=== PATIENT | female | born 1980 | race Two or more races ===

== ENCOUNTER 2021-01-23 01:09 | Emergency (ER) | payer BC, OTHER ==
[2021-01-23] MEDS ORDERED: Albuterol 0.083% 2.5 MG/3 ML Neb Soln NEB ONE (01:39)
[2021-01-23] MEDS ORDERED: predniSONE 20 MG Tab PO ONE (01:47)
[2021-01-23] MEDS ORDERED: methylPREDNISolone Sodium Succinate 40 MG/1 ML SDV IM ONE (02:07)
--- NOTE | 2021-01-23 03:26 | EDM.PDOC ---
ED HPI GENERAL MEDICAL PROBLEM - General Chief Complaint: Asthma Stated Complaint: ASTHMA Time Seen by Provider: 01/23/21 01:34 - History of Present Illness INITIAL COMMENTS - FREE TEXT/NARRATIVE: Patient arrived to ED via private vehicle Onset of symptoms occurred when she got home from work, approximately 1730 She began feeling short of breath She used 3 sprays of her albuterol inhaler without improvement Subsequently took additional albuterol via nebulizer, without improvement She is on fifth day of prepackaged steroid taper This was prescribed in [place] for asthma exacerbation last weekend Her last asthma hospitalization was several years ago - Related Data Allergies Allergy/AdvReac Type Severity Reaction Status Date / Time No Known Allergies Allergy Verified 01/23/21 01:32 Home Meds: Home Meds Albuterol Sulfate [Albuterol Sulfate Hfa] 2 puff IH Q4H PRN 01/23/21 [History] Fluticasone/Vilanterol [Breo Ellipta 200-25 MCG Inhalation Kit] 1 puff IH DAILY 01/23/21 [History] predniSONE [Prednisone] 10 mg PO ASDIRECTED #45 tablet 01/23/21 [Rx] Past Medical History Respiratory History: Reports: Asthma Social & Family History - Tobacco Use Tobacco Use Status *Q: Never Tobacco User Second Hand Smoke Exposure: No - Recreational Drug Use Recreational Drug Use: No ED ROS GENERAL - Review of Systems Review Of Systems: See Below Free Text/Narrative/Comment: Constitutional - no fever Eyes - no eye pain; no visual disturbance ENT - no rhinorrhea; no congestion; no epistaxis Cardiovascular - no chest pain Respiratory - shortness of breath; cough Gastrointestinal - no abdominal pain; no nausea; no vomiting; no diarrhea Genitourinary - no dysuria Musculoskeletal - no neck pain; no back pain; no extremity injury Neurological - no headache; no speech disturbance; no weakness ED EXAM, GENERAL - Physical Exam Exam: See Below Free Text/Narrative:: Constitutional - awake; alert; mild to moderate respiratory distress Head - no facial swelling or weakness Eyes - extra ocular motion intact; conjunctiva normal ENT - no nasal deformity; no epistaxis; normal phonation Neck - no swelling Respiratory - moderate respiratory effort; tachypnea; mild to moderate, diffuse wheezing; moderately diminished breath sounds; no stridor; no crackles; speaks in short sentences Cardiovascular - regular rhythm; normal rate; S1; S2; grade 1/6 systolic murmur GI/Abdomen - normal bowel sounds; soft; no tenderness; no rebound; no guarding; no mass Musculoskeletal - grossly normal strength and motion; no swelling or deformity Skin - warm; dry Neurologic - normal speech; no weakness Psychiatric - normal mood and affect; memory and attention normal Course - Vital Signs Text/Narrative:: . Considered etiologies included: Dyspnea, wheezing, asthma exacerbation, pneumonia Symptoms and examination were discussed Empiric treatment was initiated with albuterol by continuous nebulizer A dose of prednisone was also ordered Patient requested parenteral steroid instead, and was given methylprednisolone IM Radiography was obtained for further investigation At reevaluation she reported noticeable improvement in dyspnea She was able to lie comfortably in lateral recumbent position There was further improvement with no recurrence of respiratory distress during subsequent ED observation Escalation of steroid therapy was advised and patient was agreeable Patient was felt to be stable for outpatient follow-up Return precautions were provided Last Recorded V/S: Last Vital Signs Temp 36.2 C 01/23/21 01:29 Pulse 96 01/23/21 06:34 Resp 24 H 01/23/21 06:34 BP 114/54 L 01/23/21 06:34 Pulse Ox 95 01/23/21 06:34 - Orders/Labs/Meds Meds: Medications Discontinued Medications Generic Name Dose Route Start Last Admin Trade Name Freq PRN Reason Stop Dose Admin Albuterol 15 mg 01/23/21 01:39 01/23/21 01:50 Albuterol 0.083% 2.5 Mg/3 Ml Neb Soln NEB 01/23/21 01:40 15 mg ONETIME ONE Administration Methylprednisolone Sodium Succinate 80 mg 01/23/21 02:07 01/23/21 02:20 Methylprednisolone Sodium Succinate 40 Mg/1 Ml Sdv IM 01/23/21 02:08 80 mg ONETIME ONE Administration Prednisone 60 mg 01/23/21 01:47 Prednisone 20 Mg Tab PO 01/23/21 01:48 ONETIME ONE - Radiology Interpretation Free Text/Narrative:: XR chest, AP portable, interpreted by greeting card writer: Bilateral perihilar inflammation Departure - Departure Time of Disposition: 06:24 Disposition: Home, Self-Care 01 Clinical Impression: Asthma with acute exacerbation in adult - Discharge Information *PRESCRIPTION DRUG MONITORING PROGRAM REVIEWED*: No *COPY OF PRESCRIPTION DRUG MONITORING REPORT IN PATIENT JOSÉ MIGUEL: No Prescriptions: predniSONE [Prednisone] 10 mg PO ASDIRECTED #45 tablet Instructions: Asthma, Adult Referrals: Daria Torres MD [Primary Care Provider] - Forms: ED Department Discharge Additional Instructions: Return if condition worsens May resume general activity and regular diet as tolerated Continue usual medications Start PREDNISONE today as prescribed, then taper as directed May use ALBUTEROL via inhaler or nebulizer every 4 hours as needed for shortness of breath Follow-up with primary care provider is recommended in 3 to 5 days Sepsis Event Note (ED) - Evaluation Sepsis Screening Result: No Definite Risk
--- NOTE | 2021-01-23 07:08 | CR ---
Chest: Portable view of the chest was obtained. Comparison: No prior chest imaging is available. Heart size and mediastinum are normal. Lungs are clear with no acute parenchymal change. Bony structures show nothing acute. Impression: 1. Nothing acute is seen on portable chest x-ray. Diagnostic code #1
== END 2021-01-23 06:34 | disposition home or self-care (01) ==
LOC: JD.ED 01:09 → EEVIPCON 01:09 → JD.ED 06:34
DX: J45.901 Unspecified asthma with (acute) exacerbation (principal); Z79.899 Other long term (current) drug therapy
CPT/HCPCS: 71045; 94640; 96372; 99285; J2920

== ENCOUNTER 2024-05-10 09:32 | Emergency (ER) | payer BC ==
[2024-05-10] MEDS: Albuterol/Ipratropium 3.0-0.5 MG/3 ML Neb Soln NEB ONE ×2 (10:01→11:12)
[2024-05-10] MEDS: Sodium Chloride 0.9% 10 ML Syringe FLUSH PRN (10:45)
[2024-05-10] MEDS: methylPREDNISolone Sodium Succinate 125 MG/2 ML SDV IVPUSH ONE (10:45)
== END 2024-05-10 11:50 | disposition home or self-care (01) ==
LOC: JD.ED 09:32
DX: J45.21 Mild intermittent asthma with (acute) exacerbation (principal); Z79.899 Other long term (current) drug therapy
CPT/HCPCS: 94640; 96374; 99284; J2919; J7620-GY

== ENCOUNTER 2024-09-05 07:55 | Day surgery (SDC) | payer BC ==
[2024-09-05] MEDS: Phenylephrine 2.5% Ophth Soln 2 ML Bot EYERT SCH (06:58)
[2024-09-05] MEDS: Lidocaine 1% PF 2 ML SDV INJECT SCH (06:58)
[2024-09-05] MEDS: Tetracaine HCl/PF 0.5% 4 ML Bottle EYEBOTH SCH (06:58)
[2024-09-05] MEDS: Cefuroxime 10 MG/ML SYRINGE EYERT SCH (06:59)
[2024-09-05] MEDS: Pilocarpine 4% Ophth Soln 15 ML Bot EYERT SCH (06:59)
[2024-09-05] MEDS: Polymyxin B/Trimethoprim 10 ML Bottle EYERT SCH (06:59)
[2024-09-05] MEDS: Brimonidine 0.2% Ophth Soln 5 ML Bottle EYERT SCH (06:59)
[2024-09-05] MEDS: Tropicamide 1% Ophth Soln 3 ML Bottle EYERT SCH (08:27)
[2024-09-05] MEDS: LORazepam 1 MG Tab PO ONE (08:38)
== END 2024-09-05 10:30 ==
LOC: JD.SDS 07:55
PROVIDERS: ATTEND Ophthalmology
DX: H25.813 Combined forms of age-related cataract, bilateral (principal); H11.823 Conjunctivochalasis, bilateral; H57.813 Brow ptosis, bilateral; J45.909 Unspecified asthma, uncomplicated; Z79.899 Other long term (current) drug therapy
CPT/HCPCS: 66984; A9270; J0697; J3490

== ENCOUNTER 2024-10-03 08:01 | Day surgery (SDC) | payer BC ==
[2024-10-03] MEDS: LORazepam 1 MG Tab PO ONE (08:08)
[2024-10-03] MEDS: Polymyxin B/Trimethoprim 10 ML Bottle EYELF SCH (08:17)
[2024-10-03] MEDS: Brimonidine 0.2% Ophth Soln 5 ML Bottle EYELF SCH (08:22)
[2024-10-03] MEDS: Phenylephrine 2.5% Ophth Soln 2 ML Bot EYELF SCH (08:25)
[2024-10-03] MEDS: Tropicamide 1% Ophth Soln 3 ML Bottle EYELF SCH (08:29)
[2024-10-03] MEDS: Tetracaine HCl/PF 0.5% 4 ML Bottle EYEBOTH SCH (09:19)
[2024-10-03] MEDS: Lidocaine 1% PF 2 ML SDV INJECT SCH (10:04)
[2024-10-03] MEDS: Cefuroxime 10 MG/ML SYRINGE EYELF SCH (10:14)
[2024-10-03] MEDS: Pilocarpine 4% Ophth Soln 15 ML Bot EYELF SCH (10:15)
== END 2024-10-03 10:22 ==
LOC: JD.SDS 08:01
PROVIDERS: ATTEND Ophthalmology
DX: H25.042 Posterior subcapsular polar age-related cataract, left eye (principal); J45.909 Unspecified asthma, uncomplicated; Z79.899 Other long term (current) drug therapy
CPT/HCPCS: 66984; A9270; J3490